=== PATIENT | female | born 1995 | race African-American/Black ===

== ENCOUNTER 2018-10-26 10:38 | Emergency (ER) | payer OTHER ==
[2018-10-26 10:57] VITALS: TEMP 98.8; BMI 25.7
--- NOTE | 2018-10-26 11:23 | PDOC ---
History of Present Illness - General Chief Complaint: Nausea/Vomiting Stated Complaint: VOMITING 9WKS Time Seen by Provider: 10/26/18 11:22 History Source: Patient - History of Present Illness Timing/Duration: reports: getting worse Past History - Past Medical History Allergies/Adverse Reactions: Allergies Allergy/AdvReac Type Severity Reaction Status Date / Time No Known Allergies Allergy Verified 10/26/18 10:56 Home Medications: Ambulatory Orders Nitrofurantoin Monohyd/M-Cryst [Macrobid -] 100 mg PO BID #14 capsule 10/26/18 No122/Iron/Folic Acid [ Multi Tablet] 1 each PO DAILY 10/26/18 COPD: No - Suicide/Smoking/Psychosocial Hx Smoking History: Never smoked Information on smoking cessation initiated: No Hx Alcohol Use: No Drug/Substance Use Hx: No Review of Systems - Review of Systems Constitutional: No: Chills, Fever ABD/GI: Yes: Nausea, Vomiting. No: Abdominal cramping : No: Dysuria *Physical Exam - Vital Signs Last Vital Signs Temp Pulse Resp BP Pulse Ox 98.8 F 117 H 19 116/75 100 10/26/18 10:55 10/26/18 10:55 10/26/18 10:55 10/26/18 10:55 10/26/18 10:55 - Physical Exam General Appearance: Yes: Appropriately Dressed, Mild Distress HEENT: positive: Normal Voice Neck: positive: Supple Respiratory/Chest: negative: Respiratory Distress Gastrointestinal/Abdominal: positive: Tender, Soft Musculoskeletal: negative: CVA Tenderness Integumentary: positive: Dry, Warm Neurologic: positive: Fully Oriented, Alert, Normal Mood/Affect Moderate Sedation - Procedure Monitoring Vital Signs: Procedure Monitoring Vital Signs Temperature 98.8 F 10/26/18 10:55 Pulse Rate 117 H 10/26/18 10:55 Respiratory Rate 19 10/26/18 10:55 Blood Pressure 116/75 10/26/18 10:55 O2 Sat by Pulse Oximetry (%) 100 10/26/18 10:55 ED Treatment Course - LABORATORY CBC & Chemistry Diagram: 10/26/18 11:41 10/26/18 11:41 Medical Decision Making - Medical Decision Making 10/26/18 11:22 23 yo F, G1PO, ~ 9 weeks per date,, s/p US ~ 2 weeks ago and told confined IUP w / cardiac activity at [facility] ~2 weeks ago per pt, has appt for initial prental today, here w/ worsening n/v x 1 week. Patient states she has had symptoms since the beginning of her and taken reglan with no relief. No lower abd pain, vag bleed or dysuria See exam Hyperemesis gravidarum Tachy to 117 -reglan -IVF -labs -reassess 10/26/18 16:21 Labs remarkable for K of 2.9. PO/IV K in progress 10/26/18 18:23 S/p repletion of potassium. Feels significantly better and able to tolerate po. Rpt vitals improved. UA w/ 1+LE and many kell. Ucx sent. Will tx. pt now reports she has OB appointment in the a.m. and will follow up *DC/Admit/Observation/Transfer Diagnosis at time of Disposition: Hyperemesis - Discharge Dispostion Disposition: HOME Condition at time of disposition: Improved - Prescriptions Prescriptions: Nitrofurantoin Monohyd/M-Cryst [Macrobid -] 100 mg PO BID #14 capsule - Referrals - Patient Instructions Printed Discharge Instructions: Hyperemesis Gravidarum Additional Instructions: Rest, maintain adequate hydration and take reglan as directed Take antibiotics as directed Please follow-up with your OB in the morning as already scheduled Return for worsening of symposiums - Post Discharge Activity Forms/Work/School Notes: Back to Work
[2018-10-26] MEDS ORDERED: SODIUM CHLORIDE 1,000 ML IV STA (11:24)
[2018-10-26] MEDS ORDERED: METOCLOPRAMIDE HCL INJECTION 10 MG/2 ML VIAL IVPB ONE (11:24)
[2018-10-26] MEDS ORDERED: METOCLOPRAMIDE HCL INJECTION 10 MG/2 ML VIAL ONE (11:43)
--- NOTE | 2018-10-26 11:53 | PDOC ---
*Physical Exam - Vital Signs Last Vital Signs Temp Pulse Resp BP Pulse Ox 98.8 F 117 H 19 116/75 100 10/26/18 10:55 10/26/18 10:55 10/26/18 10:55 10/26/18 10:55 10/26/18 10:55 ED Treatment Course - LABORATORY CBC & Chemistry Diagram: 10/26/18 11:41 10/26/18 11:41 - Medications Given in the ED: ED Medications Discontinued Medications Generic Name Dose Route Start Last Admin Trade Name Milka PRN Reason Stop Dose Admin Metoclopramide HCl 10 mg 10/26/18 11:24 10/26/18 11:44 Reglan Injection - IVPB 10/26/18 11:25 10 mg ONCE ONE Administration Medical Decision Making - Medical Decision Making 10/26/18 11:53 Pt seen by Midlevel Provider under my direct supervision Ancillary studies reviewed I agree with plan as outlined by Midlevel Provider *DC/Admit/Observation/Transfer Diagnosis at time of Disposition: Hyperemesis - Discharge Dispostion Disposition: HOME Condition at time of disposition: Improved - Prescriptions Prescriptions: Nitrofurantoin Monohyd/M-Cryst [Macrobid -] 100 mg PO BID #14 capsule - Referrals - Patient Instructions Printed Discharge Instructions: Hyperemesis Gravidarum Additional Instructions: Rest, maintain adequate hydration and take reglan as directed Take antibiotics as directed Please follow-up with your OB in the morning as already scheduled Return for worsening of symposiums - Post Discharge Activity Forms/Work/School Notes: Back to Work
[2018-10-26 12:22] LABS: BASO % 0.5 % (0-2.0); EOS % 0.1 % (0-4.5); HEMATOCRIT 39.3 % (32.4-45.2); HEMOGLOBIN 14.4 GM/dL (10.7-15.3); LYMPH % 19.6 % (8-40); MCH 31.1 pg (25.7-33.7); MCHC 36.5 g/dl (32.0-36.0); MEAN CELL VOLUME 85.1 fl (80-96); MEAN PLT VOLUME 9.8 fl (7.5-11.1); MONO % 9.7 % (3.8-10.2); NEUT % 70.1 % (42.8-82.8); PLATELET COUNT 204 K/MM3 (134-434); RBC 4.62 M/mm3 (3.60-5.2); RDW 13.3 % (11.6-15.6); WHITE BLOOD COUNT 9.7 K/mm3 (4.0-10.0)
[2018-10-26 12:33] LABS: ALK PHOS 75 U/L (45-117); ANION GAP 10 MMOL/L (8-16); BILIRUBIN,TOTAL 0.8 mg/dL (0.2-1); BLOOD UREA NITROGEN 11 mg/dL (7-18); CALCIUM 9.1 mg/dL (8.5-10.1); CHLORIDE 91 mmol/L (98-107); CO2 30 mmol/L (21-32); CREATININE 0.9 mg/dL (0.55-1.3); GLUCOSE,RANDOM 115 mg/dL (74-106); SGOT/AST 14 U/L (15-37); SGPT/ALT 14 U/L (13-61); SODIUM 131 mmol/L (136-145); TOT PROT 8.3 g/dl (6.4-8.2)
[2018-10-26 12:35] LABS: POTASSIUM 2.9 mmol/L (3.5-5.1)
[2018-10-26] MEDS ORDERED: POTASSIUM CHLORIDE ORAL LIQUID 20 MEQ/15 ML PO ONE (12:43)
[2018-10-26] MEDS ORDERED: KCL 10 MEQ IVPB 30 MEQ/300 ML INFUS.BAG IVPB ONE (12:56)
[2018-10-26] MEDS ORDERED: POTASSIUM CHLORIDE ORAL LIQUID 20 MEQ/15 ML ONE (12:56)
[2018-10-26] MEDS: KCL 10 MEQ IVPB 10 MEQ/100 ML INFUS.BAG IVPB SCH ×3 (13:11→15:50)
[2018-10-26 17:54] LABS: URINE APPEARANCE CLOUDY; URINE BILIRUBIN NEGATIVE (<2.0 mg/dL); URINE COLOR AMBER; URINE GLUCOSE (UA) NEGATIVE (NEGATIVE); URINE KETONE 2+ (NEGATIVE); URINE LEUK ESTERASE 1+ (NEGATIVE); URINE NITRITE NEGATIVE (NEGATIVE); URINE PROTEIN 2+ (NEGATIVE); URINE UROBILINOGEN 4.0 E.U/dl mg/dL (0.2-1.0)
[2018-10-26 18:07] LABS: EPI CELLS FEW /HPF (FEW); URINE BACTERIA MANY /hpf (NONE SEEN); URINE MUCUS MANY
[2018-10-26 18:30] VITALS: BP 111/53; PULSE 93
== END 2018-10-26 18:57 | disposition home or self-care (01) ==
LOC: JER 10:38
PROC: 3E033GC Introduction of Other Therapeutic Substance into Peripheral Vein, Percutaneous Approach (ICD-10-PCS; principal; 2018-10-26)
PROC: 3E033GC Introduction of Other Therapeutic Substance into Peripheral Vein, Percutaneous Approach (ICD-10-PCS; 2018-10-26)
PROC: 3E0337Z Introduction of Electrolytic and Water Balance Substance into Peripheral Vein, Percutaneous Approach (ICD-10-PCS; 2018-10-26)
DX: O26.891 Other specified pregnancy related conditions, first trimester (principal); Z3A.09 9 weeks gestation of pregnancy; R11.2 Nausea with vomiting, unspecified
CPT/HCPCS: 36415; 80053; 81003; 81015; 85025; 96361; 96365; 96375; 99282-25; J7030